=== PATIENT | female | born 1995 | race Caucasian/White ===

== ENCOUNTER 2024-12-03 05:58 | Inpatient (IN) | payer OTHER ==
[~2024-12-03] VITALS: Ht 165.1 cm; Wt 72.6 kg
[2024-12-03] VITALS (9 sets, daily range): BP systolic 110–133; BP diastolic 60–84
[2024-12-03] MEDS ORDERED: RINGERS SOLUTION,LACTATED 1,000 ML IV SCH (06:15)
[2024-12-03] MEDS ORDERED: PRENATAL TABLE1 EAC1 PO (06:41)
[2024-12-03 07:03] LABS: HEMATOCRIT 36.4 % (36.0-45.00); HEMOGLOBIN 12.4 g/dL (12.0-15.00); MEAN CELL VOLUME 88.5 fL (80.00-100.00); MEAN CORPUSCULAR HEMOGLOBIN 30.1 pg (27.00-32.0); PLATELET COUNT 237 K/uL (150-450); RED BLOOD COUNT 4.11 M/uL (4.00-6.00); RED CELL DISTRIBUTION WIDTH 14.9 % (11.5-14.5)
[2024-12-03 07:10] LABS: INR 0.95; PARTIAL THROMBOPLASTIN TIME 28.3 SECONDS (22.0-34.0); PROTHROMBIN TIME 10.4 SECONDS (9.0-11.5)
[2024-12-03 08:13] LABS: ALBUMIN 3.2 gm/dL (3.4-5.0); BILIRUBIN TOTAL 0.4 mg/dL (0.3-1.2); CREATININE SERUM 0.69 mg/dL (0.55-1.02); GFR 99.9; GLOBULINA 3.6 G/DL (2.4-3.5); POTASSIUM 4.19 mEq/L (3.5-5.1); TOTAL PROTEIN 6.8 gm/dL (6.4-8.2)
[2024-12-03] MEDS ORDERED: ERYTHROMYCIN BASE OPHT 1GM EACH TUBE OP ONE ×2 (10:49→17:00)
[2024-12-03] MEDS ORDERED: OXYTOCIN 20 UNITS/1000ML RL PIGGYBAG IV ONE (10:49)
[2024-12-03] MEDS ORDERED: CHLORHEXIDINE GLUCONATE 120 ML BOTTLE TOP ONE ×2 (10:50→17:00)
[2024-12-03] MEDS ORDERED: LIDOCAINE HCL 1% 10ML VIAL ONE (10:50)
[2024-12-03] MEDS ORDERED: METHYLERGONOVINE MALEATE 0.2 MG/ML AMPUL IV STA (15:28)
[2024-12-03] MEDS ORDERED: OxyCODONE HCL 5 MG TABLET (ROXICODONE) PO PRN (15:30)
[2024-12-03] MEDS ORDERED: IBUprofen 400 MG TABLET PO PRN (15:30)
[2024-12-03] MEDS ORDERED: OXYTOCIN 1,000 ML IV SCH (15:30)
[2024-12-03] MEDS ORDERED: ACETAMINOPHEN 325 MG TABLET PO SCH (17:00)
[2024-12-03] MEDS ORDERED: LIDOCAINE HCL 1% 10ML VIAL PERCUT ONE (17:00)
[2024-12-04 01:01] VITALS: BP 108/67
[2024-12-04 08:46] VITALS: BP 119/75
[2024-12-04 16:00] VITALS: BP 101/69
[2024-12-05] VITALS: BP 99/63
[2024-12-05 09:15] VITALS: BP 112/73
== END 2024-12-05 10:45 | disposition home or self-care (01) | DRG 807 ==
LOC: LDR 05:58 → OB/GYN 18:26 → LDR 12-11 11:30
PROVIDERS: Obstetrics & Gynecology Maternal & Fetal Medicine; ADMIT Obstetrics & Gynecology; ATTEND Obstetrics & Gynecology
PROC: 10E0XZZ Delivery of Products of Conception, External Approach (ICD-10-PCS; principal; 2024-12-03)
PROC: 0W8NXZZ Division of Female Perineum, External Approach (ICD-10-PCS; 2024-12-03)
PROC: 4A1HXCZ Monitoring of Products of Conception, Cardiac Rate, External Approach (ICD-10-PCS; 2024-12-03)
DX: O80 Encounter for full-term uncomplicated delivery (principal); Z37.0 Single live birth; Z3A.38 38 weeks gestation of pregnancy